=== PATIENT | female | born 2000 | race Caucasian/White ===

== ENCOUNTER 2023-11-22 07:40 | Outpatient (CLI) | payer OTHER ==
[~2023-11-22 07:40] MED LIST: GADOTERATE MEGLUMINE 7.5 MMOL/15 ML VIAL ONE
[2023-11-22] MEDS: GADOTERATE MEGLUMINE 7.5 MMOL/15 ML VIAL IVP ONE (09:10)
--- NOTE | 2023-11-25 13:03 | MRI Report ---
PROCEDURE: Wrist LT W/WO INDICATIONS: WRIST MASS 23-year-old female with mass on the left wrist. Likely ganglion cyst. CONTRAST: CLARISCAN 11.4 ML TECHNIQUE: Noncontrast coronal proton density fast spin echo, T1 spin echo with and without fat saturation, and T2 fast spin echo with fat saturation; coronal 3-D gradient echo, axial T1 spin echo and T2 fast spin echo with fat saturation, sagittal T1 spin echo through the wrist. Post-contrast axial, coronal, an d sagittal T1 spin echo with fat saturation through the wrist. COMPARISON: None. FINDINGS: Image quality: Excellent. Bones and cartilage: No suspicious osseous enhancement. The carpal bones are normally aligned. No bone marrow contusions or fractures. No evidence for avascular necrosis. Very mild negative ulnar v ariance. Overlying cartilage surfaces appear normal. Carpal ligaments: The scapholunate and lunotriquetral ligaments appear intact. On sagittal images, t he pisohamate ligament appears intact. Triangular fibrocartilage complex: The triangular fibrocartilage appears intact. Tendons and soft tissues: No suspicious soft tissue enhancement. Small amount of fluid is seen track ing along the flexor tendons within the carpal tunnel, most notably surrounding the 2nd flexor tendon s. No acute tendon tearing. The ulnar nerve appears normal within Guyon's canal. Mild volar subluxat ion of the extensor carpi ulnaris tendon may indicate underlying injury to the tendon subsheath. All six extensor tendon compartments demonstrate normal morphology, without pathologic tendon sheath flui d. No soft tissue ganglion cysts. IMPRESSION: 1.No ganglion cysts or enhancing soft tissue mass. 2.Mild tenosynovitis of the flexor tendons within the carpal tunnel, most notably involving the 2nd f lexor tendons. 3.Mild volar subluxation of the extensor carpi ulnaris tendon may indicate underlying injury to the t endon subsheath. Reviewed by: Jasson Dorantes MD on 11/25/2023 1:02 PM PDT Approved by: Jasson Dorantes MD on 11/25/2023 1:02 PM PDT Station ID: [id number]
== END 2023-11-22 07:41 | disposition home or self-care (01) ==
LOC: DI 07:40
PROVIDERS: ATTEND Orthopaedic Surgery
DX: M65.9 Synovitis and tenosynovitis, unspecified (principal)